=== PATIENT | male | born 1990 | race Caucasian/White ===

== ENCOUNTER → 2023-03-30 14:05 | Outpatient (BNVA) | payer OTHER, SELFPAY | PROVIDERS: Visit Provider Physician Assistant Medical | DX: S83.411A Sprain of medial collateral ligament of right knee, initial encounter (principal); S39.012A Strain of muscle, fascia and tendon of lower back, initial encounter; V54.0XXA Driver of pick-up truck or van injured in collision with heavy transport vehicle or bus in nontraffic accident, initial encounter | CPT/HCPCS: 73564; 99203 ==

== ENCOUNTER → 2023-04-02 11:06 | Outpatient (BNVA) | payer OTHER, SELFPAY | PROVIDERS: Visit Provider Physician Assistant Medical | DX: S83.411A Sprain of medial collateral ligament of right knee, initial encounter (principal); S73.101A Unspecified sprain of right hip, initial encounter; S39.012A Strain of muscle, fascia and tendon of lower back, initial encounter; V54.0XXA Driver of pick-up truck or van injured in collision with heavy transport vehicle or bus in nontraffic accident, initial encounter | CPT/HCPCS: 72170; 73502; 99213 ==

== ENCOUNTER → 2023-04-16 10:54 | Outpatient (BNVA) | payer OTHER, SELFPAY | PROVIDERS: Visit Provider Physician Assistant Medical | DX: S76.011A Strain of muscle, fascia and tendon of right hip, initial encounter (principal); S39.012A Strain of muscle, fascia and tendon of lower back, initial encounter; V54.0XXA Driver of pick-up truck or van injured in collision with heavy transport vehicle or bus in nontraffic accident, initial encounter | CPT/HCPCS: 99214 ==

== ENCOUNTER → 2023-05-06 11:11 | Outpatient (BNVA) | payer OTHER, SELFPAY | PROVIDERS: Visit Provider Physician Assistant Medical | DX: S33.6XXD Sprain of sacroiliac joint, subsequent encounter (principal); S83.411D Sprain of medial collateral ligament of right knee, subsequent encounter; S39.012D Strain of muscle, fascia and tendon of lower back, subsequent encounter; V54 Occupant of pick-up truck or van injured in collision with heavy transport vehicle or bus | CPT/HCPCS: 99213 ==